=== PATIENT | female | born 1990 | race Caucasian/White ===

== ENCOUNTER 2016-07-11 19:03 | Emergency (ER) | payer SELFPAY ==
[~2016-07-11] VITALS: Ht 157.5 cm; Wt 68.9 kg
[2016-07-11 20:40] LABS: BASOPHIL % 0.3 % (0-2); PLATELET COUNT 208 x10^3mcL (130-400); RED CELL DISTRIBUTION WIDTH 12.6 % (11.5-14.5)
[2016-07-11 20:51] LABS: ALBUMIN 3.4 g/dL (3.4-5.0); ALKALINE PHOSPHATASE 122 U/L (46-116); ALT/SGPT 26 U/L (14-59); AST/SGOT 14 U/L (15-37); BILIRUBIN TOTAL 0.7 mg/dL (0.20-1.00); CALCIUM 8.6 mg/dL (8.5-10.1); CARBON DIOXIDE 31.3 mmol/L (21-32); CHLORIDE SERUM 104 mmol/L (98-107); CREATININE SERUM 0.8 mg/dL (0.6-1.0); GFR1 > 60 mL/min; GLUCOSE SERUM 98 mg/dL (74-106); SODIUM SERUM 142 mmol/L (136-145); TOTAL PROTEIN, SERUM 7.8 g/dL (6.4-8.2)
[2016-07-11 20:55] LABS: POTASSIUM SERUM 2.9 mmol/L (3.5-5.1)
[2016-07-12 02:09] VITALS: BP 124/82
== END 2016-07-12 02:09 | disposition short-term general hospital (02) ==
LOC: ED 19:03
PROVIDERS: Emergency Medicine
DX: K12.2 Cellulitis and abscess of mouth (principal)
CPT/HCPCS: J0696; J2270; J2405; J7030; Q9967

== ENCOUNTER 2018-03-13 10:58 | Emergency (ER) | payer SELFPAY ==
[~2018-03-13] VITALS: Ht 157.5 cm; Wt 78.9 kg
[2018-03-13 11:10] VITALS: Ht 157.5 cm; Wt 78.9 kg
[2018-03-13 14:47] VITALS: BP 108/68
== END 2018-03-13 14:47 | disposition home or self-care (01) ==
LOC: ED 10:58
DX: O26.892 Other specified pregnancy related conditions, second trimester (principal); R10.30 Lower abdominal pain, unspecified; Z3A.16 16 weeks gestation of pregnancy